=== PATIENT | male | born 1950 | race Caucasian/White ===

== ENCOUNTER 2024-05-15 04:07 | Inpatient (IN) | payer MEDICARE ==
[2024-05-15 04:46] LABS: #Basophils Less than 0.03 10x3/uL (0.0-0.2); %Basophils 0.3 % (0.0-1.0); %Eosinophils 0.6 % (0.0-10.0); %Lymphocytes 10.3 % (21.0-51.0); %Monocytes 4.5 % (0.0-10.0); %Neutrophils 83.7 % (42.0-75.0); Hematocrit 39.6 % (42.0-52.0); Hemoglobin 13.2 g/dL (14.0-18.0); Mean Corpuscular HGB CONC 33.3 g/dL (32.0-36.0); Mean Corpuscular Hemoglobin 32.8 pg (27.0-31.0); Mean Corpuscular Volume 98.5 fL (78.0-98.0); Mean Platelet Volume 9.2 fL (7.4-10.4); Platelet Count 195 10x3/uL (130-400); RBC Distribution Width 13.5 % (11.5-14.5); Red Blood Cell (RBC) Count 4.02 mill/uL (4.70-6.10)
[2024-05-15 05:02] LABS: ALT (SGPT) 43 U/L (8-55); AST (SGOT) 27 U/L (5-34); Albumin 3.7 g/dL (3.4-4.8); Alkaline Phosphatase 62 U/L (40-110); Anion Gap 14 mmol/L (10-20); BUN (Urea Nitrogen) 24 mg/dL (8.4-25.7); Bilirubin, Total 0.6 mg/dL (0.2-1.2); Calc. Creatinine Clearance 0 mL/min (70-130); Calcium 8.8 mg/dL (7.8-10.44); Carbon Dioxide 21 mmol/L (23-31); Chloride 108 mmol/L (98-107); Estimated GFR 90; Globulin 3.2 g/dL (2.4-3.5); Glucose 223 mg/dL (83-110); Potassium 4.3 mmol/L (3.5-5.1); Protein, Total 6.9 g/dL (5.8-8.1); Sodium 139 mmol/L (136-145)
[2024-05-15 05:04] LABS: Troponin I 0.029 ng/mL (< 0.028)
[2024-05-15 05:52] LABS: Influenza A by NAA Not Detected (NotDetected); Influenza B by NAA Not Detected (NotDetected); SARS-CoV-2 NAA Rapid Test Not Detected (NotDetected)
[2024-05-15 08:07] LABS: Hemoglobin A1c 6.2 % (4.0-6.0)
[2024-05-15 08:11] LABS: Magnesium 1.8 mg/dL (1.6-2.6)
[2024-05-15 08:15] LABS: Troponin I 0.076 ng/mL (< 0.028)
[2024-05-15] MEDS ORDERED: Acetaminophen 650 MG Suppository PR PRN (08:40)
[2024-05-15] MEDS ORDERED: Ondansetron PF 4 MG/2 ML Vial IVP PRN (08:40)
[2024-05-15] MEDS ORDERED: Ondansetron ODT 4 MG TAB PO PRN (08:40)
[2024-05-15] MEDS ORDERED: Carvedilol 3.125 MG TAB PO SCH (09:00)
[2024-05-15 10:35] LABS: Troponin I 0.075 ng/mL (< 0.028)
[2024-05-15] MEDS ORDERED: Iopamidol 370 76% 100 ML VIAL ONE (10:36)
[2024-05-15 11:02] VITALS: BMI 32.8
[2024-05-15] MEDS: Famotidine/PF 20 mg/2ml Vial SLOW IVP SCH (11:03)
[2024-05-15] MEDS: Famotidine 20 MG TAB PO SCH (11:03)
[2024-05-15] MEDS: cefTRIAXone\\ROCEPHIN 1 GM in Sodium Chloride 0.9% 100 ML IVPB SCH (11:03)
[2024-05-15] MEDS: Doxycycline 100 MG CAP PO SCH (11:03)
[2024-05-15] MEDS: Magnesium 2 GM/50 ML(in water) 2 GM in Premix 1 BAG IVPB SCH (11:40)
[2024-05-15] MEDS ORDERED: Glucagon 1 MG/ML KIT IM PRN (12:11)
[2024-05-15] MEDS ORDERED: Dextrose 50% Abboject 50 ML SYRINGE SLOW IVP PRN (12:11)
[2024-05-15] MEDS ORDERED: Dextrose 5% in Water 1,000 ML IV PRN (12:11)
[2024-05-15] MEDS: Furosemide 40 MG (4 mL) VIAL SLOW IVP SCH (14:59)
[2024-05-15] MEDS: metFORMIN 500 MG TAB PO SCH (17:12)
[2024-05-15] MEDS: Acetaminophen 325 MG TAB PO PRN (20:25)
[2024-05-16 04:29] LABS: #Basophils Less than 0.03 10x3/uL (0.0-0.2); %Basophils 0.2 % (0.0-1.0); %Eosinophils 0.8 % (0.0-10.0); %Lymphocytes 17.6 % (21.0-51.0); %Monocytes 10.9 % (0.0-10.0); %Neutrophils 70.2 % (42.0-75.0); Hemoglobin 12.7 g/dL (14.0-18.0); Mean Corpuscular HGB CONC 33.4 g/dL (32.0-36.0); Mean Corpuscular Hemoglobin 32.9 pg (27.0-31.0); Mean Corpuscular Volume 98.4 fL (78.0-98.0); Mean Platelet Volume 9.8 fL (7.4-10.4); Platelet Count 179 10x3/uL (130-400); RBC Distribution Width 13.7 % (11.5-14.5); Red Blood Cell (RBC) Count 3.86 mill/uL (4.70-6.10)
[2024-05-16 04:59] LABS: ALT (SGPT) 28 U/L (8-55); AST (SGOT) 14 U/L (5-34); Albumin 3.3 g/dL (3.4-4.8); Alkaline Phosphatase 52 U/L (40-110); Anion Gap 14 mmol/L (10-20); BUN (Urea Nitrogen) 21 mg/dL (8.4-25.7); Bilirubin, Total 0.4 mg/dL (0.2-1.2); Calc. Creatinine Clearance 115 mL/min (70-130); Calcium 8.8 mg/dL (7.8-10.44); Carbon Dioxide 23 mmol/L (23-31); Chloride 106 mmol/L (98-107); Estimated GFR 95; Glucose 154 mg/dL (83-110); Potassium 4.2 mmol/L (3.5-5.1); Protein, Total 6.3 g/dL (5.8-8.1); Sodium 139 mmol/L (136-145)
[2024-05-16] MEDS: Lisinopril 20 MG TAB PO SCH (08:23)
[2024-05-16] MEDS: Aspirin 81 mg Enteric Coated Tablet PO SCH (11:00)
[2024-05-16] MEDS ORDERED: Insulin Lispro 100 UNIT/ML 10 ML VIAL SC PRN (12:15)
[2024-05-16] MEDS: Insulin Lispro 100 UNIT/ML 10 ML VIAL SC PRN (12:37)
[2024-05-16] MEDS: Carvedilol 3.125 MG TAB PO SCH (16:24)
[2024-05-16] MEDS: Atorvastatin Calcium 10 MG TAB PO SCH (21:00)
[2024-05-17] MEDS ORDERED: Carvedilol 3.125 MG TAB PO SCH (08:06)
[2024-05-17] MEDS ORDERED: Communication Order-Pharmacy FS SCH (08:15)
[2024-05-17] MEDS: Empagliflozin 10 MG TAB PO SCH (08:42)
[2024-05-17] MEDS: Spironolactone 25 MG TAB PO SCH (08:42)
[2024-05-17] MEDS: Aspirin 81 mg Enteric Coated Tablet PO SCH (08:43)
[2024-05-17] MEDS: Carvedilol 6.25 MG TAB PO SCH (16:10)
[2024-05-18 05:38] LABS: #Basophils Less than 0.03 10x3/uL (0.0-0.2); %Basophils 0.4 % (0.0-1.0); %Eosinophils 3.2 % (0.0-10.0); %Lymphocytes 32.2 % (21.0-51.0); %Monocytes 9.3 % (0.0-10.0); %Neutrophils 54.5 % (42.0-75.0); Hematocrit 40.5 % (42.0-52.0); Hemoglobin 13.8 g/dL (14.0-18.0); Mean Corpuscular HGB CONC 34.1 g/dL (32.0-36.0); Mean Corpuscular Hemoglobin 33.4 pg (27.0-31.0); Mean Corpuscular Volume 98.1 fL (78.0-98.0); Mean Platelet Volume 9.4 fL (7.4-10.4); Platelet Count 189 10x3/uL (130-400); RBC Distribution Width 13.2 % (11.5-14.5); Red Blood Cell (RBC) Count 4.13 mill/uL (4.70-6.10)
[2024-05-18] MEDS ORDERED: Nitroglycerin 50 MG/250 ML BOT 0 ML ONE (06:21)
[2024-05-18] MEDS ORDERED: Heparin 10,000 UNITS/ 10 ML VIAL ONE (06:21)
[2024-05-18 06:39] LABS: Anion Gap 16 mmol/L (10-20); BUN (Urea Nitrogen) 15 mg/dL (8.4-25.7); Calc. Creatinine Clearance 104 mL/min (70-130); Calcium 9.5 mg/dL (7.8-10.44); Carbon Dioxide 23 mmol/L (23-31); Chloride 103 mmol/L (98-107); Estimated GFR 96; Glucose 140 mg/dL (83-110); Magnesium 2.1 mg/dL (1.6-2.6); Potassium 4.1 mmol/L (3.5-5.1); Sodium 138 mmol/L (136-145)
[2024-05-18] MEDS ORDERED: Midazolam HCl 2 mg/2 ml Vial ONE (07:37)
[2024-05-18] MEDS ORDERED: Iopamidol 370 76% 100 ML VIAL ONE (09:44)
[2024-05-18] MEDS: Metoprolol Tartrate 5 MG (5 mL) VIAL IVP SCH (15:44)
[2024-05-18] MEDS ORDERED: Communication Order-Pharmacy FS SCH (17:46)
[2024-05-18] MEDS: Sacubitril 24MG/Valsartan 26 MG TAB PO SCH (20:36)
[2024-05-18] MEDS: Atorvastatin Calcium 40 MG TAB PO SCH (20:36)
[2024-05-19 08:00] LABS: Anion Gap 13 mmol/L (10-20); BUN (Urea Nitrogen) 21 mg/dL (8.4-25.7); Calc. Creatinine Clearance 106 mL/min (70-130); Calcium 9.4 mg/dL (7.8-10.44); Carbon Dioxide 23 mmol/L (23-31); Chloride 104 mmol/L (98-107); Estimated GFR 95; Glucose 158 mg/dL (83-110); Potassium 4.1 mmol/L (3.5-5.1); Sodium 136 mmol/L (136-145)
[2024-05-20 05:25] LABS: #Basophils 0.03 10x3/uL (0.0-0.2); %Basophils 0.4 % (0.0-1.0); %Eosinophils 2.1 % (0.0-10.0); %Lymphocytes 19.6 % (21.0-51.0); %Monocytes 9.7 % (0.0-10.0); %Neutrophils 67.9 % (42.0-75.0); Hematocrit 44.2 % (42.0-52.0); Hemoglobin 14.9 g/dL (14.0-18.0); Mean Corpuscular HGB CONC 33.7 g/dL (32.0-36.0); Mean Corpuscular Hemoglobin 33.4 pg (27.0-31.0); Mean Corpuscular Volume 99.1 fL (78.0-98.0); Mean Platelet Volume 9.4 fL (7.4-10.4); Platelet Count 197 10x3/uL (130-400); RBC Distribution Width 13.1 % (11.5-14.5); Red Blood Cell (RBC) Count 4.46 mill/uL (4.70-6.10)
[2024-05-20 06:15] LABS: Anion Gap 16 mmol/L (10-20); BUN (Urea Nitrogen) 26 mg/dL (8.4-25.7); Calc. Creatinine Clearance 106 mL/min (70-130); Calcium 9.5 mg/dL (7.8-10.44); Carbon Dioxide 21 mmol/L (23-31); Chloride 106 mmol/L (98-107); Estimated GFR 95; Glucose 170 mg/dL (83-110); Potassium 4.3 mmol/L (3.5-5.1); Sodium 139 mmol/L (136-145)
[2024-05-21] MEDS ORDERED: PHENYLEPHRINE-NS 100 MCG/ML 10 ML SYRINGE ONE (10:35)
[2024-05-21] MEDS ORDERED: Bupivacaine PF 0.5% 30 ML VIAL ONE (10:35)
[2024-05-21] MEDS ORDERED: EPINEPHrine 1 MG/ML VIAL ONE (10:35)
[2024-05-21] MEDS ORDERED: Albumin 5% 500 ML ONE (10:36)
[2024-05-21] MEDS ORDERED: Midazolam HCl 5 mg/ml Vial ONE (10:54)
[2024-05-21] MEDS ORDERED: Norepinephrine 4 MG/4 ML VIAL ONE (10:54)
[2024-05-21] MEDS ORDERED: PROPOFOL 20 ML ONE (11:03)
[2024-05-21] MEDS ORDERED: Fentanyl 250 MCG/5 ML VIAL ONE (11:03)
[2024-05-21] MEDS ORDERED: Lidocaine 1% MPF 2 ML VIAL ONE (11:03)
[2024-05-21] MEDS ORDERED: Lidocaine 2% PF 5 ML VIAL ONE (11:06)
[2024-05-21] MEDS ORDERED: Aminocaproic Acid 5 GM/20 ML VIAL ONE ×3 (11:12→11:21)
[2024-05-21] MEDS ORDERED: Papaverine 60 MG/2 ML VIAL ONE (11:21)
[2024-05-21] MEDS ORDERED: Calcium Chloride 1 GM/10 ML Abboject SYRINGE ONE (11:21)
[2024-05-21] MEDS ORDERED: Magnesium 5 GM/10 ML VIAL ONE (11:21)
[2024-05-21] MEDS ORDERED: Thrombin 5000 UNITS/5 ML VIAL ONE (11:21)
[2024-05-21] MEDS ORDERED: Heparin 30,000 units/30 ml VIAL ONE (11:21)
[2024-05-21] MEDS ORDERED: Potassium Chloride 60 mEq (30 mL) VIAL ONE (11:21)
[2024-05-21] MEDS ORDERED: Sodium Bicarb 50 mEq/50 ML VIAL ONE (11:21)
[2024-05-21] MEDS ORDERED: Cardioplegic Soln 1,000 ML BAG ONE (11:21)
[2024-05-21] MEDS ORDERED: Lidocaine 2% PF 100 mg/5 ml Syringe ONE (11:21)
[2024-05-21] MEDS ORDERED: Heparin 5,000 UNITS/ML VIAL ONE (11:21)
[2024-05-21] MEDS ORDERED: Mannitol 12.5 GM/50 ML ONE (11:21)
[2024-05-21] MEDS ORDERED: Vancomycin 1 GM VIAL ONE (11:21)
[2024-05-21] MEDS ORDERED: Protamine Sulfate 250 MG/25 ML VIAL ONE (11:21)
[2024-05-21] MEDS ORDERED: Midazolam HCl 2 mg/2 ml Vial ONE (11:22)
[2024-05-21] MEDS ORDERED: Heparin 10,000 UNITS/1 ML VIAL 30,000 UNITS in Sodium Chloride 0.9% 1,000 ML FS SCH (11:30)
[2024-05-21] MEDS ORDERED: CEFAZOLIN 2 GM VIAL ONE (11:44)
[2024-05-21] MEDS ORDERED: Sodium Chloride 0.9% 100 ML ONE (11:44)
[2024-05-21] MEDS ORDERED: CEFAZOLIN 2 GM in Sodium Chloride 0.9% 100 ML IVPB SCH (12:00)
[2024-05-21] MEDS ORDERED: Insulin Regular 300 UNITS/3 ML VIAL ONE (12:41)
[2024-05-21] MEDS ORDERED: Sodium Chloride 0.9% 300 ML ONE (13:50)
[2024-05-21] MEDS ORDERED: Dexamethasone 4 mg/ml Vial ONE (13:55)
[2024-05-21] MEDS ORDERED: Rocuronium Bromide 10 MG/ML (10ML VIAL) ONE (14:16)
[2024-05-21] MEDS ORDERED: hydrALAZINE 20 MG/ML VIAL SLOW IVP PRN (14:55)
[2024-05-21] MEDS ORDERED: Potassium Chloride 20 MEQ (100 mL) BAG IVPB PRN (14:55)
[2024-05-21] MEDS ORDERED: NOREPINEPHRINE 8 MG/250 ML-D5W 250 ML IVPB PRN (14:55)
[2024-05-21] MEDS ORDERED: Bisacodyl 5 MG TAB PO PRN (14:55)
[2024-05-21] MEDS ORDERED: Guaifenesin DM 100-10/5 ML UDCUP PO PRN (14:55)
[2024-05-21] MEDS ORDERED: Albumin 5% 12.5 GM (250 mL) BOT IVPB PRN (14:55)
[2024-05-21] MEDS ORDERED: Mag-Al 1200 mg/1200 mg/30 ML UDCUP PO PRN (14:55)
[2024-05-21] MEDS ORDERED: fentaNYL 50 mcg/mL 1 mL Vial SLOW IVP PRN ×2 (14:55)
[2024-05-21] MEDS ORDERED: Promethazine HCl 25 MG/ML VIAL IM PRN (14:55)
[2024-05-21] MEDS ORDERED: traMADol HCl 50 MG TAB PO PRN (14:55)
[2024-05-21] MEDS ORDERED: Nitroglycerin 50 MG/250 ML BOT 250 ML IVPB PRN (14:55)
[2024-05-21] MEDS ORDERED: Bisacodyl 10 MG SUPP PR PRN (14:55)
[2024-05-21] MEDS ORDERED: Ipratropium/Albuterol 3 ML NEB NEB PRN (14:55)
[2024-05-21 15:10] LABS: Actual Bicarbonate (HCO3a) 20.3 mEq/L (22-28); Base Excess (BEa) -7.4 mEq/L (-2.0 to +3.0); CO2 Tension 49.7 mmHg (35.0-45.0); Calcium, Ionized (arterial) 1.19 mmol/L (1.12-1.30); Hematocrit-ABG 38 % (42.0-52.0); Hemoglobin (Hb) 12.9 g/dL (14.0-18.0); O2 Tension (PaO2), arterial 76.2 mmHg (> 70.0); Potassium - ABG Lab 4.76 mmol/L (3.70-5.30); pH, Arterial 7.229 (7.35-7.45)
[2024-05-21 15:12] LABS: ALV-art Gradient 289.475 mmHg (0-20); Puncture Site Arterial Line
[2024-05-21] MEDS ORDERED: Dextrose 50% Abboject 50 ML SYRINGE SLOW IVP PRN (15:15)
[2024-05-21] MEDS ORDERED: Dextrose 5% in Water 1,000 ML IV PRN (15:15)
[2024-05-21] MEDS ORDERED: Insulin Regular, Human 100 UNIT/ML 10 ML VIAL SC PRN (15:15)
[2024-05-21] MEDS ORDERED: Glucagon 1 MG/ML KIT SC PRN (15:15)
[2024-05-21] MEDS ORDERED: Insulin Reg, Human 100 UNITS in Sodium Chloride 0.9% 100 ML IVPB SCH (15:15)
[2024-05-21] MEDS: D5 1/2 NS w/20 mEq KCL 1,000 ML IV SCH (15:19)
[2024-05-21 15:20] LABS: #Basophils 0.04 10x3/uL (0.0-0.2); %Basophils 0.2 % (0.0-1.0); %Eosinophils 0.3 % (0.0-10.0); %Lymphocytes 12.2 % (21.0-51.0); %Monocytes 9.5 % (0.0-10.0); %Neutrophils 76.5 % (42.0-75.0); Hematocrit 36.7 % (42.0-52.0); Hemoglobin 12.7 g/dL (14.0-18.0); Mean Corpuscular HGB CONC 34.6 g/dL (32.0-36.0); Mean Corpuscular Hemoglobin 33.2 pg (27.0-31.0); Mean Corpuscular Volume 96.1 fL (78.0-98.0); Mean Platelet Volume 9.7 fL (7.4-10.4); Platelet Count 185 10x3/uL (130-400); RBC Distribution Width 13.1 % (11.5-14.5); Red Blood Cell (RBC) Count 3.82 mill/uL (4.70-6.10)
[2024-05-21] MEDS: Magnesium 2 GM/50 ML(in water) 2 GM in Premix 1 BAG IVPB SCH (15:20)
[2024-05-21] MEDS: INSULIN REGULAR IN 0.9 % NACL 100 UNITS in Premix 1 BAG IVPB SCH (15:20)
[2024-05-21 15:33] LABS: INR-International Normal Ratio 1.3; PTT 30.1 sec (22.9-36.1); Prothrombin Time 16.6 sec (12.0-14.7)
[2024-05-21] MEDS: Morphine 2 MG/ML VIAL SLOW IVP PRN (15:47)
[2024-05-21 16:15] LABS: Anion Gap 13 mmol/L (10-20); BUN (Urea Nitrogen) 27 mg/dL (8.4-25.7); Calc. Creatinine Clearance 115 mL/min (70-130); Calcium 8.1 mg/dL (7.8-10.44); Carbon Dioxide 21 mmol/L (23-31); Chloride 111 mmol/L (98-107); Estimated GFR 97; Glucose 170 mg/dL (83-110); Potassium 5.4 mmol/L (3.5-5.1); Sodium 140 mmol/L (136-145)
[2024-05-21] MEDS: Albumin 5% 12.5 GM (250 mL) BOT IVPB PRN (17:09)
[2024-05-21 17:20] LABS: Actual Bicarbonate (HCO3a) 21.1 mEq/L (22-28); Base Excess (BEa) -3.6 mEq/L (-2.0 to +3.0); CO2 Tension 37.1 mmHg (35.0-45.0); Calcium, Ionized (arterial) 1.11 mmol/L (1.12-1.30); Carboxyhemoglobin (COHb) 1.5 gm% (0.0-3.0); Hematocrit-ABG 37 % (42.0-52.0); Hemoglobin (Hb) 12.6 g/dL (14.0-18.0); O2 Tension (PaO2), arterial 90.8 mmHg (> 70.0); Potassium - ABG Lab 5.39 mmol/L (3.70-5.30); pH, Arterial 7.373 (7.35-7.45)
[2024-05-21 17:21] LABS: ALV-art Gradient 148.025 mmHg (0-20); Puncture Site Arterial Line
[2024-05-21] MEDS: Ketorolac Tromethamine 30 MG (1 mL) VIAL IVP SCH (17:46)
[2024-05-21] MEDS: Dextrose 5 %-0.45 % NaCl 1,000 ML IV SCH (17:49)
[2024-05-21] MEDS: Hetastarch 6% 500 ML 500 ML IVPB PRN (19:25)
[2024-05-21] MEDS: CEFAZOLIN 2 GM in Sodium Chloride 0.9% 100 ML IVPB SCH (19:25)
[2024-05-21] MEDS: traMADol HCl 50 MG TAB PO PRN (20:31)
[2024-05-21] MEDS: Atorvastatin Calcium 40 MG TAB PO SCH (20:31)
[2024-05-21] MEDS: Famotidine/PF 20 mg/2ml Vial SLOW IVP SCH (20:31)
[2024-05-21] MEDS ORDERED: Atorvastatin Calcium 20 MG TAB PO SCH (21:00)
[2024-05-21 21:18] LABS: Hematocrit 33.2 % (42.0-52.0); Hemoglobin 11.8 g/dL (14.0-18.0)
[2024-05-21 21:26] LABS: Potassium 4.5 mmol/L (3.5-5.1)
[2024-05-22 03:35] LABS: #Basophils Less than 0.03 10x3/uL (0.0-0.2); #Eosinphils Less than 0.03 10x3/uL (0.0-0.7); %Basophils 0.1 % (0.0-1.0); %Monocytes 11.9 % (0.0-10.0); %Neutrophils 80.7 % (42.0-75.0); Hematocrit 33.1 % (42.0-52.0); Hemoglobin 11.3 g/dL (14.0-18.0); Mean Corpuscular HGB CONC 34.1 g/dL (32.0-36.0); Mean Corpuscular Hemoglobin 33.7 pg (27.0-31.0); Mean Corpuscular Volume 98.8 fL (78.0-98.0); Mean Platelet Volume 9.6 fL (7.4-10.4); Platelet Count 130 10x3/uL (130-400); RBC Distribution Width 13.2 % (11.5-14.5); Red Blood Cell (RBC) Count 3.35 mill/uL (4.70-6.10)
[2024-05-22 03:47] LABS: Anion Gap 14 mmol/L (10-20); BUN (Urea Nitrogen) 26 mg/dL (8.4-25.7); Calc. Creatinine Clearance 134 mL/min (70-130); Carbon Dioxide 20 mmol/L (23-31); Chloride 111 mmol/L (98-107); Estimated GFR 102; Glucose 125 mg/dL (83-110); Potassium 4.3 mmol/L (3.5-5.1); Sodium 141 mmol/L (136-145)
[2024-05-22] MEDS: Acetaminophen 325 MG TAB PO PRN (04:38)
[2024-05-22] MEDS ORDERED: Glucagon 1 MG/ML KIT IM PRN (08:01)
[2024-05-22] MEDS ORDERED: Dextrose 50% Abboject 50 ML SYRINGE SLOW IVP PRN (08:01)
[2024-05-22] MEDS ORDERED: Dextrose 5% in Water 1,000 ML IV PRN (08:01)
[2024-05-22] MEDS: Magnesium 2 GM/50 ML(in water) 2 GM in Premix 1 BAG IVPB SCH (08:04)
[2024-05-22] MEDS: Insulin Glargine 30 UNITS/0.3 ML VIAL SC SCH (08:04)
[2024-05-22] MEDS: Aspirin 325 MG TAB PO SCH (08:04)
[2024-05-22] MEDS: Pantoprazole DR 40 MG TAB PO SCH (09:34)
[2024-05-22] MEDS: Ondansetron PF 4 MG/2 ML Vial IVP PRN (11:32)
[2024-05-22] MEDS: Insulin Lispro 100 UNIT/ML 10 ML VIAL SC PRN (11:33)
[2024-05-22] MEDS: Pioglitazone HCl 45 MG TAB PO SCH (11:35)
[2024-05-22 13:06] VITALS: BMI 31.1
[2024-05-22 17:27] VITALS: BP 118/64; TEMP 98
[2024-05-22] MEDS: NOREPINEPHRINE 8 MG/250 ML-D5W 250 ML ONE (18:00)
[2024-05-22] MEDS: Albumin 5% 12.5 GM (250 mL) BOT IVPB SCH (18:25)
[2024-05-22] MEDS: Albumin 5% 500 ML ONE (18:26)
[2024-05-22] MEDS: Lactated Ringer's 1,000 ML IV SCH (18:27)
[2024-05-22] MEDS ORDERED: NOREPINEPHRINE 8 MG/250 ML-D5W 250 ML IVPB SCH (18:30)
[2024-05-22] MEDS ORDERED: DOBUTamine 500 mg/250 ml 250 ML ONE (19:13)
[2024-05-22] MEDS ORDERED: Lactated Ringer's 1,000 ML IV SCH (19:23)
[2024-05-22] MEDS ORDERED: Atropine Sulfate 1 mg/10 ml Syringe ONE (19:27)
[2024-05-22] MEDS ORDERED: Sodium Bicarb 50 MEQ/50 ML Abboject 8.4% SYRINGE ONE ×2 (19:27→19:35)
[2024-05-22] MEDS ORDERED: Amiodarone 150 MG/3 ML VIAL ONE (19:27)
[2024-05-22] MEDS ORDERED: Dextrose 50% Abboject 50 ML SYRINGE ONE (19:27)
[2024-05-22] MEDS ORDERED: Calcium Chloride 1 GM/10 ML Abboject SYRINGE ONE (19:27)
[2024-05-22] MEDS ORDERED: EPINEPHrine 1 MG/10 ML Abboject SYRINGE ONE ×2 (19:27→19:38)
[2024-05-22] MEDS ORDERED: Magnesium 5 GM/10 ML Abboject SYRINGE ONE (19:27)
[2024-05-22] MEDS ORDERED: Magnesium Sulfate 4 GM in Sodium Chloride 0.9% 250 ML 250 ML IV SCH (19:28)
[2024-05-22] MEDS ORDERED: EPINEPHrine 4 MG in Dextrose 5% in Water 250 ML IVP SCH (19:30)
[2024-05-22] MEDS ORDERED: Magnesium Sulfate 2 GM in Sodium Chloride 0.9% 100 ML IV SCH (19:42)
[2024-05-22 19:47] LABS: #Basophils Less than 0.03 10x3/uL (0.0-0.2); #Eosinphils Less than 0.03 10x3/uL (0.0-0.7); %Basophils 0.1 % (0.0-1.0); %Lymphocytes 14.6 % (21.0-51.0); %Monocytes 10.7 % (0.0-10.0); Hematocrit 35.6 % (42.0-52.0); Hemoglobin 11.7 g/dL (14.0-18.0); Mean Corpuscular HGB CONC 32.9 g/dL (32.0-36.0); Mean Corpuscular Hemoglobin 33.5 pg (27.0-31.0); Mean Platelet Volume 9.6 fL (7.4-10.4); Platelet Count 168 10x3/uL (130-400); RBC Distribution Width 13.4 % (11.5-14.5); Red Blood Cell (RBC) Count 3.49 mill/uL (4.70-6.10)
[2024-05-22 19:56] LABS: ALT (SGPT) 33 U/L (8-55); AST (SGOT) 55 U/L (5-34); Albumin 3.3 g/dL (3.4-4.8); Alkaline Phosphatase 67 U/L (40-110); Anion Gap 17 mmol/L (10-20); BUN (Urea Nitrogen) 34 mg/dL (8.4-25.7); Calc. Creatinine Clearance 64 mL/min (70-130); Carbon Dioxide 19 mmol/L (23-31); Chloride 104 mmol/L (98-107); Estimated GFR 56; Globulin 2.4 g/dL (2.4-3.5); Glucose 317 mg/dL (83-110); Magnesium 3.6 mg/dL (1.6-2.6); Protein, Total 5.7 g/dL (5.8-8.1); Sodium 134 mmol/L (136-145)
[2024-05-22] MEDS ORDERED: Amiodarone 450 MG in Dextrose 5% in Water 250 ML IVPB SCH (20:45)
[2024-05-22] MEDS ORDERED: EPINEPHrine 1 MG/10 ML Abboject SYRINGE IVP PRN (20:45)
[2024-05-22] MEDS ORDERED: Calcium Chloride 1 GM/10 ML Abboject SYRINGE IVP PRN (20:45)
[2024-05-22] MEDS ORDERED: DOPamine 400 MG/D5W 250 ML 250 ML IVPB SCH (20:45)
[2024-05-22] MEDS ORDERED: Sodium Bicarb 50 mEq/50 ML VIAL IVP PRN (20:45)
[2024-05-22] MEDS ORDERED: DOBUTamine 500 mg/250 ml 250 ML IVPB SCH (20:45)
[2024-05-22] MEDS ORDERED: Atropine Sulfate 1 mg/10 ml Syringe IVP PRN (20:45)
[2024-06-01 14:17] LABS: Actual Bicarbonate (HCO3a) 20.9 mEq/L (22-28); Analyzer IN Cardio OR; Base Excess (BEa) -4.7 mEq/L (-2.0 to +3.0); CO2 Tension 40.6 mmHg (35.0-45.0); Calcium, Ionized (arterial) 1.17 mmol/L (1.12-1.30); Carboxyhemoglobin (COHb) 1.4 gm% (0.0-3.0); Hematocrit-ABG 43 % (42.0-52.0); Hemoglobin (Hb) 14.5 g/dL (14.0-18.0); O2 Tension (PaO2), arterial 454.6 mmHg (> 70.0); Potassium - ABG Lab 4.39 mmol/L (3.70-5.30); pH, Arterial 7.329 (7.35-7.45)
[2024-06-01 14:17] LABS: Actual Bicarbonate (HCO3a) 20.6 mEq/L (22-28); Analyzer IN Cardio OR; Base Excess (BEa) -6.1 mEq/L (-2.0 to +3.0); CO2 Tension 45.2 mmHg (35.0-45.0); Calcium, Ionized (arterial) 1.15 mmol/L (1.12-1.30); Carboxyhemoglobin (COHb) 1.4 gm% (0.0-3.0); Hematocrit-ABG 41 % (42.0-52.0); O2 Tension (PaO2), arterial 439.9 mmHg (> 70.0); Potassium - ABG Lab 4.53 mmol/L (3.70-5.30); pH, Arterial 7.277 (7.35-7.45)
[2024-06-01 14:18] LABS: Actual Bicarbonate (HCO3a) 23.9 mEq/L (22-28); Analyzer IN Cardio OR; CO2 Tension 45.7 mmHg (35.0-45.0); Carboxyhemoglobin (COHb) 0.9 gm% (0.0-3.0); Hematocrit-ABG 31 % (42.0-52.0); Hemoglobin (Hb) 10.5 g/dL (14.0-18.0); O2 Tension (PaO2), arterial 321.7 mmHg (> 70.0); Potassium - ABG Lab 4.56 mmol/L (3.70-5.30); pH, Arterial 7.337 (7.35-7.45)
[2024-06-01 14:18] LABS: Actual Bicarbonate (HCO3a) 19.7 mEq/L (22-28); Analyzer IN Cardio OR; Base Excess (BEa) -6.5 mEq/L (-2.0 to +3.0); CO2 Tension 41.9 mmHg (35.0-45.0); Calcium, Ionized (arterial) 1.01 mmol/L (1.12-1.30); Carboxyhemoglobin (COHb) 1.1 gm% (0.0-3.0); Hematocrit-ABG 35 % (42.0-52.0); O2 Tension (PaO2), arterial 298.6 mmHg (> 70.0); Potassium - ABG Lab 4.28 mmol/L (3.70-5.30); pH, Arterial 7.291 (7.35-7.45)
[2024-06-01 14:18] LABS: Puncture Site Arterial Line
[2024-06-01 14:18] LABS: Actual Bicarbonate (HCO3a) 22.6 mEq/L (22-28); Analyzer IN Cardio OR; Base Excess (BEa) -4.7 mEq/L (-2.0 to +3.0); CO2 Tension 50.9 mmHg (35.0-45.0); Calcium, Ionized (arterial) 1.16 mmol/L (1.12-1.30); Carboxyhemoglobin (COHb) 1.2 gm% (0.0-3.0); Hematocrit-ABG 36 % (42.0-52.0); Hemoglobin (Hb) 12.2 g/dL (14.0-18.0); O2 Tension (PaO2), arterial 107.4 mmHg (> 70.0); pH, Arterial 7.265 (7.35-7.45)
[2024-06-01 14:18] LABS: Actual Bicarbonate (HCO3a) 21.7 mEq/L (22-28); Analyzer IN Cardio OR; Base Excess (BEa) -4.6 mEq/L (-2.0 to +3.0); CO2 Tension 45.3 mmHg (35.0-45.0); Carboxyhemoglobin (COHb) 0.8 gm% (0.0-3.0); Hematocrit-ABG 31 % (42.0-52.0); Hemoglobin (Hb) 10.5 g/dL (14.0-18.0); O2 Tension (PaO2), arterial 104.2 mmHg (> 70.0); Potassium - ABG Lab 4.81 mmol/L (3.70-5.30); pH, Arterial 7.298 (7.35-7.45)
[2024-06-01 14:19] LABS: Puncture Site Arterial Line
[2024-06-01 14:19] LABS: Puncture Site Arterial Line
[2024-06-01 14:20] LABS: Puncture Site Arterial Line
[2024-06-01 14:20] LABS: Puncture Site Arterial Line
[2024-06-01 14:20] LABS: Puncture Site Arterial Line
== END 2024-05-22 20:07 | disposition expired | DRG 233 ==
LOC: ERS 04:07 → IMCU/EMU 06:14 → 2NO 10:15 → SJJU 05-21 11:05 → CCU 05-21 14:57 → 2NO 05-22 17:08 → CCU 05-22 17:57
PROVIDERS: ADMIT Student in an Organized Health Care Education/Training Program; ATTEND Internal Medicine
PROC: 5A09357 Assistance with Respiratory Ventilation, Less than 24 Consecutive Hours, Continuous Positive Airway Pressure (ICD-10-PCS; 2024-05-15)
PROC: 4A023N7 Measurement of Cardiac Sampling and Pressure, Left Heart, Percutaneous Approach (ICD-10-PCS; 2024-05-18)
PROC: B2111ZZ Fluoroscopy of Multiple Coronary Arteries using Low Osmolar Contrast (ICD-10-PCS; 2024-05-18)
PROC: B2151ZZ Fluoroscopy of Left Heart using Low Osmolar Contrast (ICD-10-PCS; 2024-05-18)
PROC: 02100Z9 Bypass Coronary Artery, One Artery from Left Internal Mammary, Open Approach (ICD-10-PCS; principal; 2024-05-21)
PROC: 021109W Bypass Coronary Artery, Two Arteries from Aorta with Autologous Venous Tissue, Open Approach (ICD-10-PCS; 2024-05-21)
PROC: 06BQ4ZZ Excision of Left Saphenous Vein, Percutaneous Endoscopic Approach (ICD-10-PCS; 2024-05-21)
PROC: 5A1221Z Performance of Cardiac Output, Continuous (ICD-10-PCS; 2024-05-21)
PROC: 02L70CK Occlusion of Left Atrial Appendage with Extraluminal Device, Open Approach (ICD-10-PCS; 2024-05-21)
PROC: 4A133R1 Monitoring of Arterial Saturation, Peripheral, Percutaneous Approach (ICD-10-PCS; 2024-05-21)
PROC: 3E033XZ Introduction of Vasopressor into Peripheral Vein, Percutaneous Approach (ICD-10-PCS; 2024-05-21)
PROC: 30233J1 Transfusion of Nonautologous Serum Albumin into Peripheral Vein, Percutaneous Approach (ICD-10-PCS; 2024-05-21)
DX: I25.10 Atherosclerotic heart disease of native coronary artery without angina pectoris (principal); I50.43 Acute on chronic combined systolic (congestive) and diastolic (congestive) heart failure; J18.9 Pneumonia, unspecified organism; J96.90 Respiratory failure, unspecified, unspecified whether with hypoxia or hypercapnia; E87.4 Mixed disorder of acid-base balance; I46.9 Cardiac arrest, cause unspecified; E11.9 Type 2 diabetes mellitus without complications; K21.9 Gastro-esophageal reflux disease without esophagitis; E78.5 Hyperlipidemia, unspecified; I11.0 Hypertensive heart disease with heart failure; I08.1 Rheumatic disorders of both mitral and tricuspid valves; I25.5 Ischemic cardiomyopathy; E87.5 Hyperkalemia; I48.0 Paroxysmal atrial fibrillation; E66.9 Obesity, unspecified; I44.7 Left bundle-branch block, unspecified; R79.89 Other specified abnormal findings of blood chemistry; Z98.890 Other specified postprocedural states; Z68.31 Body mass index [BMI] 31.0-31.9, adult
CPT/HCPCS: 36415; 36416; 71045; 71275; 80048; 80053; 80061; 82805; 83036; 83735; 83880; 84443; 85025; 85610; 85730; 86850; 86900; 86901; 93005; 93010; 93306; 93458; 93798; 94002; 94660; 94760; 97139; 99152; 99153; A4311; A4648; C1751; C1769; J0171; J0282; J0461; J0665; J0696; J1100; J1642; J1644; J1815; J1885; J1940; J2001; J2150; J2250; J2272; J2405; J2440; J2704; J2720; J3010; J3370; J3475; J3480; J3490; J7042; J7120; J7999; P9045; Q9967; S0017